=== PATIENT | female | born 1990 | race Two or more races ===

== ENCOUNTER 2022-02-18 16:54 | Emergency (ER) | payer SELFPAY ==
[~2022-02-18] VITALS: Ht 149.9 cm; Wt 70.9 kg
[2022-02-18 16:55] VITALS: BP 108/65
== END 2022-02-18 21:36 | disposition left against medical advice (07) ==
LOC: M ED 16:54
DX: Z53.21 Procedure and treatment not carried out due to patient leaving prior to being seen by health care provider (principal)

== ENCOUNTER 2022-10-22 18:41 | Emergency (ER) | payer OTHER, SELFPAY ==
[~2022-10-22] VITALS: Ht 149.9 cm; Wt 68.4 kg
[2022-10-22 20:05] LABS: BASO # 0.1 10^3/uL (0.0-0.2); BASO % 0.4 % (0.0-1.0); EOS # 0.1 10^3/uL (0.0-0.5); EOS % 0.8 % (0.0-3.0); HEMATOCRIT 38.1 % (36.0-47.0); HEMOGLOBIN 12.1 g/dl (12.0-15.5); LYMPH # 1.4 10^3/uL (1.5-5.0); LYMPH % 10.3 % (24.0-44.0); MEAN CORPUSCULAR HEMOGLOBIN 27.9 pg (27.0-33.0); MEAN CORPUSCULAR HGB CONC 31.8 g/dl (32.0-36.5); MONO # 1.1 10^3/uL (0.0-0.8); MONO % 7.8 % (2.0-8.0); NEUTROPHILS # 11.2 10^3/uL (1.5-8.5); NEUTROPHILS % 80.3 % (36.0-66.0); PLATELET COUNT, AUTOMATED 194 10^3/uL (150-450); RED BLOOD COUNT 4.33 10^6/uL (4.00-5.40); WHITE BLOOD COUNT 13.9 10^3/uL (4.0-10.0)
[2022-10-22 20:16] LABS: LIPASE 23 U/L (12-53)
[2022-10-22 20:17] LABS: HCG, SERUM QUALITATIVE NEGATIVE (NEGATIVE)
[2022-10-22 20:18] LABS: AMYLASE 48 U/L (30-118)
[2022-10-22 20:19] LABS: ALBUMIN 3.9 G/DL (3.2-5.2); ALKALINE PHOSPHATASE 77 U/L (46-116); ALT/SGPT 16 U/L (7.0-40); AST/SGOT 9 U/L (<34); BILIRUBIN,DIRECT 0.2 MG/DL (<0.4); BILIRUBIN,TOTAL 0.5 MG/DL (0.3-1.2); BLOOD UREA NITROGEN 14 MG/DL (9-23); CALCIUM LEVEL 9.3 MG/DL (8.5-10.1); CARBON DIOXIDE LEVEL 27 MMOL/L (20-31); CHLORIDE LEVEL 105 MMOL/L (98-107); CREATININE FOR GFR 0.66 MG/DL (0.55-1.30); GLOMERULAR FILTRATION RATE > 60.0 (>60); GLUCOSE, FASTING 87 MG/DL (60-100); POTASSIUM SERUM 4.4 MMOL/L (3.5-5.1); SODIUM LEVEL 140 MMOL/L (136-145); TOTAL PROTEIN 7.1 G/DL (5.7-8.2)
[2022-10-22] MEDS ORDERED: ONDANSETRON 4MG 2ML VIAL IV ONE (23:20)
[2022-10-22] MEDS ORDERED: KETOROLAC 30 MG/ML 1ML VIAL IV ONE (23:20)
[2022-10-22] MEDS ORDERED: NS 1,000 ML IV ONE (23:20)
[2022-10-22] MEDS ORDERED: ISOVUE-370 76% 100ML VIAL As Ordered ONE (23:23)
[2022-10-23] MEDS ORDERED: ONDA4TAB6 PO (02:27)
[2022-10-23] MEDS ORDERED: KETO10TAB PO (02:27)
[2022-10-23 02:30] VITALS: BP 120/68; TEMP 98.9; O2SAT 97
== END 2022-10-23 02:30 | disposition home or self-care (01) ==
LOC: M ED 18:41
DX: A09 Infectious gastroenteritis and colitis, unspecified (principal); Z87.442 Personal history of urinary calculi
CPT/HCPCS: 74177; 80048; 80076; 81001; 82150; 83605; 83690; 84703; 85025; 96374; 96375; 99284; J1885; J2405; Q9967

== ENCOUNTER 2022-12-29 12:08 | Observation (INO) | payer OTHER ==
[~2022-12-29] VITALS: Ht 149.9 cm; Wt 72.7 kg
[~2022-12-29 12:08] MED LIST: KETO10TAB PO; ONDA4TAB6 PO
[2022-12-29] MEDS ORDERED: ACET-683 PO (12:18)
[2022-12-29 13:20] LABS: ETHYL ALCOHOL (ETHANOL) 0.008 % (0.000-0.010)
[2022-12-29 13:22] LABS: ALBUMIN 3.5 G/DL (3.2-5.2); ALKALINE PHOSPHATASE 56 U/L (46-116); ALT/SGPT 11 U/L (7.0-40); AST/SGOT 13 U/L (<34); BILIRUBIN,DIRECT 0.1 MG/DL (<0.4); BILIRUBIN,TOTAL 0.2 MG/DL (0.3-1.2); BLOOD UREA NITROGEN 7 MG/DL (9-23); CALCIUM LEVEL 8.6 MG/DL (8.5-10.1); CARBON DIOXIDE LEVEL 24 MMOL/L (20-31); CHLORIDE LEVEL 101 MMOL/L (98-107); CREATININE FOR GFR 0.55 MG/DL (0.55-1.30); GLOMERULAR FILTRATION RATE > 60.0 (>60); GLUCOSE, FASTING 105 MG/DL (60-100); POTASSIUM SERUM 3.5 MMOL/L (3.5-5.1); SODIUM LEVEL 135 MMOL/L (136-145)
[2022-12-29 13:25] LABS: THYROID STIMULATING HORMONE 0.793 uIU/ML (0.55-4.78)
[2022-12-29 13:30] LABS: BASO % 0.3 % (0.0-1.0); EOS % 0.1 % (0.0-3.0); HEMATOCRIT 39.3 % (36.0-47.0); HEMOGLOBIN 12.8 g/dl (12.0-15.5); LYMPH # 0.7 10^3/uL (1.5-5.0); LYMPH % 8.6 % (24.0-44.0); MEAN CORPUSCULAR HEMOGLOBIN 28.3 pg (27.0-33.0); MEAN CORPUSCULAR HGB CONC 32.6 g/dl (32.0-36.5); MEAN CORPUSCULAR VOLUME 86.8 fl (80.0-96.0); MONO # 0.8 10^3/uL (0.0-0.8); MONO % 10.8 % (2.0-8.0); NEUTROPHILS # 6.2 10^3/uL (1.5-8.5); NEUTROPHILS % 79.8 % (36.0-66.0); PLATELET COUNT, AUTOMATED 201 10^3/uL (150-450); RED BLOOD COUNT 4.53 10^6/uL (4.00-5.40); WHITE BLOOD COUNT 7.7 10^3/uL (4.0-10.0)
[2022-12-29 13:38] LABS: AMPHETAMINES LEVEL URINE NEGATIVE (NEGATIVE); BARBITURATES URINE NEGATIVE (NEGATIVE); BENZODIAZEPINES URINE NEGATIVE (NEGATIVE); COCAINE METABOLITE URINE NEGATIVE (NEGATIVE)
[2022-12-29 13:39] LABS: METHADONE URINE NEGATIVE (NEGATIVE); OPIATES URINE NEGATIVE (NEGATIVE); PHENCYCLIDINE URINE NEGATIVE (NEGATIVE)
[2022-12-29 13:41] LABS: CANNABINOIDS URINE POSITIVE (NEGATIVE)
[2022-12-29] MEDS ORDERED: MED REC IN PROGRESS XX SCH (17:15)
[2022-12-29] MEDS ORDERED: HOME MED LIST COMPLETE! XX SCH (17:30)
[2022-12-29] MEDS ORDERED: ACETAMINOPHEN TAB 650MG DOSE (2X325MG) PO PRN (18:00)
[2022-12-29] MEDS ORDERED: PYRIDOXINE 50 MG TAB PO PRN (18:10)
[2022-12-29] MEDS ORDERED: PILL CUTTER 1 EACH XX PRN (18:15)
[2022-12-29] MEDS: NS 1,000 ML IV SCH (18:33)
[2022-12-29 20:35] VITALS: BP 112/76; TEMP 98.4; O2SAT 98
[2022-12-29] MEDS: OSELTAMIVIR PHOSPHATE 75 MG CAP (TAMIFLU) PO SCH (21:24)
[2022-12-30] MEDS: NS 1,000 ML IV SCH (04:00)
[2022-12-30 05:39] LABS: HEMATOCRIT 36.3 % (36.0-47.0); HEMOGLOBIN 11.8 g/dl (12.0-15.5); MEAN CORPUSCULAR HEMOGLOBIN 27.8 pg (27.0-33.0); MEAN CORPUSCULAR HGB CONC 32.5 g/dl (32.0-36.5); MEAN CORPUSCULAR VOLUME 85.4 fl (80.0-96.0); PLATELET COUNT, AUTOMATED 199 10^3/uL (150-450); RED BLOOD COUNT 4.25 10^6/uL (4.00-5.40); WHITE BLOOD COUNT 6.7 10^3/uL (4.0-10.0)
[2022-12-30] MEDS ORDERED: HEPARIN SOD (PORCINE) 5000UNITS/ML 1ML VIAL/SYRINGE SC SCH (06:00)
[2022-12-30 06:06] LABS: BLOOD UREA NITROGEN < 5 MG/DL (9-23); CALCIUM LEVEL 8.1 MG/DL (8.5-10.1); CARBON DIOXIDE LEVEL 24 MMOL/L (20-31); CHLORIDE LEVEL 104 MMOL/L (98-107); CREATININE FOR GFR 0.52 MG/DL (0.55-1.30); GLOMERULAR FILTRATION RATE > 60.0 (>60); GLUCOSE, FASTING 84 MG/DL (60-100); POTASSIUM SERUM 3.7 MMOL/L (3.5-5.1); SODIUM LEVEL 134 MMOL/L (136-145)
[2022-12-30 06:29] VITALS: BP 115/77; TEMP 98.2; O2SAT 98
[2022-12-30] MEDS: OSELTAMIVIR PHOSPHATE 75 MG CAP (TAMIFLU) PO SCH (08:24)
[2022-12-30] MEDS ORDERED: PRENATAL VITAMINS CHEWABLE TABLET PO SCH (09:00)
[2022-12-30] MEDS ORDERED: OSEL75CA2 PO (09:02)
[2022-12-30] MEDS ORDERED: PYRI25TA2 PO (09:02)
[2022-12-30] MEDS ORDERED: PREN1TAB11 PO (09:02)
[2022-12-30] MEDS ORDERED: INFLUENZA QUADRIVALENT PF VACCINE 0.5ML SYRINGE IM.IMMUN ONE (11:00)
== END 2022-12-30 11:31 | disposition home or self-care (01) ==
LOC: M ED 12:08 → EDBD 12:08 → M ED INP 17:59 → M MS4PR 20:35
PROVIDERS: ADMIT Internal Medicine; ATTEND Internal Medicine
DX: J09.X2 Influenza due to identified novel influenza A virus with other respiratory manifestations (principal); R11.2 Nausea with vomiting, unspecified; R55 Syncope and collapse; Z32.01 Encounter for pregnancy test, result positive; Z3A.01 Less than 8 weeks gestation of pregnancy; Z88.0 Allergy status to penicillin; Z82.49 Family history of ischemic heart disease and other diseases of the circulatory system; Z83.49 Family history of other endocrine, nutritional and metabolic diseases; Z82.5 Family history of asthma and other chronic lower respiratory diseases

== ENCOUNTER → 2023-02-04 | Outpatient (CLI) | payer OTHER ==
[~2023-02-04] MED LIST changes: +ACET-683 PO; +OSEL75CA2 PO; +PREN1TAB11 PO; +PYRI25TA2 PO
[2023-02-04 13:46] LABS: HEMATOCRIT 39.9 % (36.0-47.0); HEMOGLOBIN 12.7 g/dl (12.0-15.5); MEAN CORPUSCULAR HEMOGLOBIN 28.4 pg (27.0-33.0); MEAN CORPUSCULAR HGB CONC 31.8 g/dl (32.0-36.5); MEAN CORPUSCULAR VOLUME 89.3 fl (80.0-96.0); PLATELET COUNT, AUTOMATED 244 10^3/uL (150-450); RED BLOOD COUNT 4.47 10^6/uL (4.00-5.40); WHITE BLOOD COUNT 10.8 10^3/uL (4.0-10.0)
[2023-02-04 14:33] LABS: HIV 1&2 SCREEN NEGATIVE (NEGATIVE)
[2023-02-04 14:41] LABS: HEPATITIS C VIRUS ABY INDEX 0.06 INDEX (<0.8)
[2023-02-04 16:14] LABS: CHLAMYDIA DNA AMPLIFICATION NEGATIVE (NEGATIVE); GC DNA AMPLIFICATION NEGATIVE (NEGATIVE)
== END ==
LOC: M PLALAB 10:44
PROVIDERS: ATTEND Advanced Practice Midwife
DX: Z34.81 Encounter for supervision of other normal pregnancy, first trimester (principal)

== ENCOUNTER → 2023-04-19 | Outpatient (CLI) | payer MEDICAID, OTHER | LOC: M WHC 07:13 | PROVIDERS: ATTEND Obstetrics & Gynecology | DX: Z34.92 Encounter for supervision of normal pregnancy, unspecified, second trimester (principal); Z3A.21 21 weeks gestation of pregnancy; Z36.2 Encounter for other antenatal screening follow-up ==

== ENCOUNTER → 2023-05-11 | Outpatient (CLI) | payer OTHER | LOC: M PLALAB 08:54 | PROVIDERS: ATTEND Obstetrics & Gynecology | DX: O09.292 Supervision of pregnancy with other poor reproductive or obstetric history, second trimester (principal) ==

== ENCOUNTER 2023-05-21 10:43 | Outpatient (CLI) | payer OTHER, MEDICAID ==
[~2023-05-21] VITALS: Ht 149.9 cm; Wt 78.8 kg
[2023-05-21] MEDS ORDERED: METR-265 PO (12:43)
[2023-05-21] MEDS ORDERED: HOME MED LIST COMPLETE! XX SCH (12:50)
[2023-05-21] MEDS: metroNIDAZOLE (FLAGYL) 500MG TABLET PO ONE (12:56)
== END 2023-05-21 13:00 | disposition home or self-care (01) ==
LOC: M LDO 10:43
PROVIDERS: ATTEND Advanced Practice Midwife
DX: O23.592 Infection of other part of genital tract in pregnancy, second trimester (principal); Z3A.26 26 weeks gestation of pregnancy
CPT/HCPCS: 59025; 81001; G0463

== ENCOUNTER 2023-06-29 12:55 | Outpatient (CLI) | payer OTHER, MEDICAID ==
[~2023-06-29] VITALS: Ht 149.9 cm; Wt 83.4 kg
[~2023-06-29 12:55] MED LIST changes: +METR-265 PO
[2023-06-29 13:21] VITALS: BP 109/61
[2023-06-29 14:25] VITALS: BP 117/68
[2023-06-29 15:21] VITALS: BP 108/60
[2023-06-29 16:26] VITALS: BP 115/68
[2023-06-29 19:42] LABS: GC DNA AMPLIFICATION NEGATIVE (NEGATIVE)
== END 2023-06-29 18:24 | disposition home or self-care (01) ==
LOC: M LDO 12:55
PROVIDERS: ATTEND Obstetrics & Gynecology
DX: O47.03 False labor before 37 completed weeks of gestation, third trimester (principal); Z3A.31 31 weeks gestation of pregnancy
CPT/HCPCS: 59025; 81001; 82731; 87810; 87850; G0463

== ENCOUNTER → 2023-07-06 | Outpatient (CLI) | payer OTHER ==
[2023-07-06 13:58] LABS: HEMATOCRIT 33.3 % (36.0-47.0); HEMOGLOBIN 10.5 g/dl (12.0-15.5); MEAN CORPUSCULAR HGB CONC 31.5 g/dl (32.0-36.5); PLATELET COUNT, AUTOMATED 148 10^3/uL (150-450); RED BLOOD COUNT 3.62 10^6/uL (4.00-5.40); WHITE BLOOD COUNT 8.9 10^3/uL (4.0-10.0)
== END ==
LOC: M PLALAB 10:33
PROVIDERS: ATTEND Obstetrics & Gynecology
DX: O09.292 Supervision of pregnancy with other poor reproductive or obstetric history, second trimester (principal)

== ENCOUNTER 2023-07-21 12:36 | Outpatient (CLI) | payer OTHER, MEDICAID ==
[~2023-07-21] VITALS: Ht 149.9 cm; Wt 84.9 kg
[2023-07-21 12:52] VITALS: BP 117/70
[2023-07-21] MEDS ORDERED: HOME MED LIST COMPLETE! XX SCH (13:00)
[2023-07-21 13:30] VITALS: BP 112/65
[2023-07-21] MEDS ORDERED: METR-265 PO (14:26)
[2023-07-21 15:04] LABS: Trichomonas vaginalis (AMP) NOT DETECTED (NEGATIVE)
[2023-07-21] MEDS: metroNIDAZOLE (FLAGYL) 500MG TABLET PO ONE (15:17)
[2023-07-21 15:19] VITALS: BP 125/67
[2023-07-21 15:28] LABS: GC DNA AMPLIFICATION NEGATIVE (NEGATIVE)
== END 2023-07-21 15:49 ==
LOC: M LDO 12:36
PROVIDERS: ATTEND Advanced Practice Midwife
DX: O23.593 Infection of other part of genital tract in pregnancy, third trimester (principal); O99.119 Other diseases of the blood and blood-forming organs and certain disorders involving the immune mechanism complicating pregnancy, unspecified trimester; O09.293 Supervision of pregnancy with other poor reproductive or obstetric history, third trimester; D69.6 Thrombocytopenia, unspecified; Z3A.35 35 weeks gestation of pregnancy
CPT/HCPCS: 59025; 87661; 87810; 87850; G0463

== ENCOUNTER → 2023-07-28 | Outpatient (CLI) | payer OTHER ==
[~2023-07-28] MED LIST changes: +ONDA-282 PO; -ONDA4TAB6 PO
[2023-07-28 13:18] LABS: HEMATOCRIT 34.3 % (36.0-47.0); HEMOGLOBIN 10.8 g/dl (12.0-15.5); MEAN CORPUSCULAR HEMOGLOBIN 28.5 pg (27.0-33.0); MEAN CORPUSCULAR HGB CONC 31.5 g/dl (32.0-36.5); MEAN CORPUSCULAR VOLUME 90.5 fl (80.0-96.0); PLATELET COUNT, AUTOMATED 159 10^3/uL (150-450); RED BLOOD COUNT 3.79 10^6/uL (4.00-5.40); WHITE BLOOD COUNT 9.1 10^3/uL (4.0-10.0)
== END ==
LOC: M PLALAB 10:50
PROVIDERS: ATTEND Obstetrics & Gynecology
DX: O99.119 Other diseases of the blood and blood-forming organs and certain disorders involving the immune mechanism complicating pregnancy, unspecified trimester (principal); Z3A.36 36 weeks gestation of pregnancy

== ENCOUNTER → 2023-07-29 | Outpatient (CLI) | payer MEDICAID, OTHER, SELFPAY | LOC: M RAD 14:33 | PROVIDERS: ATTEND Obstetrics & Gynecology | DX: O26.843 Uterine size-date discrepancy, third trimester (principal); Z3A.36 36 weeks gestation of pregnancy ==